=== PATIENT | male | born 1965 | race Caucasian/White ===

== ENCOUNTER → 2021-03-17 11:08 | Outpatient (CLI) | payer OTHER, SELFPAY ==
[2021-03-17 22:06] LABS: COVID19 - ORCAS (NP or Nasal) Negative (Negative)
== END ==
PROVIDERS: Visit Provider Physician Assistant
DX: Z20.822 Contact with and (suspected) exposure to COVID-19 (principal)
CPT/HCPCS: U0003

== ENCOUNTER → 2022-02-07 10:58 | Outpatient (CLI) | payer OTHER, SELFPAY ==
[2022-02-07 19:29] LABS: Add Manual Diff / Slide Review NO; BUN Creatinine Ratio 17.4 (6-22); Basophils Absolute Auto 0 /uL (0-100); Basophils Percent Auto 0.7 % (0-2); Blood Urea Nitrogen 19 mg/dL (9-20); Calcium 9.7 mg/dL (8.4-10.2); Carbon Dioxide 32 mmol/L (22-32); Chloride 99 mmol/L (98-107); Cholesterol 292 mg/dL (140-199); Eosinophils Absolute Auto 100 /uL (0-450); Eosinophils Percent Auto 1.7 % (2-4); Estimated Glomerular Filt Rate > 60 mL/min (>60); Glucose 113 mg/dL (70-100); HDL Cholesterol 101 mg/dL (40-60); HEMOLYSIS < 15 (0-50); Hematocrit 45.1 % (41-53); Hemoglobin 15.6 g/dL (13.5-17.5); LDL Cholesterol Calculated 174 mg/dL (<100); Lymphocytes Absolute Auto 1800 /uL (1100-4500); Lymphocytes Percent Auto 32.9 % (25-40); Mean Corpuscular HGB Conc 34.6 % (30-36); Mean Corpuscular Hemoglobin 29.6 PG (26-34); Mean Corpuscular Volume 85.4 fL (80-100); Monocytes Absolute Auto 600 /uL (0-900); Monocytes Percent Auto 11.7 % (3-14); Neutrophils Absolute Auto 2900 /uL (1500-7000); Platelet Count 263 X10^3/uL (150-400); Potassium 4.9 mmol/L (3.4-5.1); Red Blood Cell Count 5.28 X10^6/uL (4.5-5.9); Red Cell Distribution Width 13.4 % (11.6-14.8); Sodium 139 mmol/L (137-145); Triglycerides 83 mg/dL (35-150); White Blood Cell Count 5.4 X10^3/uL (4.5-11.0)
== END ==
PROVIDERS: PCP Family Medicine; Visit Provider Family Medicine
DX: E78.2 Mixed hyperlipidemia (principal); I10 Essential (primary) hypertension; M79.605 Pain in left leg; R04.0 Epistaxis; Z98.890 Other specified postprocedural states
CPT/HCPCS: 80048; 80061; 85025

== ENCOUNTER → 2022-04-05 12:27 | Outpatient (CLI) | payer OTHER, SELFPAY ==
[2022-04-05 21:04] LABS: COVID19 - ORCAS (NP or Nasal) Negative (Negative)
== END ==
PROVIDERS: PCP Family Medicine; Visit Provider Family Medicine
DX: Z20.822 Contact with and (suspected) exposure to COVID-19 (principal)
CPT/HCPCS: U0003

== ENCOUNTER 2023-05-29 18:52 | Inpatient (IN) | payer OTHER, SELFPAY ==
[2023-05-29] VITALS (12 sets, daily range): BP systolic 123–205; BP diastolic 71–101; PULSE 67–94; RESP 20; TEMP 37.2; O2SAT 92–99; BMI 25.1
--- NOTE | 2023-05-29 19:07 | DI.RAD.S_ITS ---
PROCEDURE: XR CHEST 1V INDICATIONS: fall off ladder TECHNIQUE: One view of the chest was acquired. COMPARISON: None. FINDINGS: Surgical changes and devices: None. Lungs and pleura: Lungs are clear. No pleural effusions or pneumothorax. Mediastinum: Mediastinal contours appear normal. Heart size is mildly enlarged. Bones and chest wall: No suspicious bony lesions. Overlying soft tissues appear unremarkable. IMPRESSION: No acute pulmonary process. Dictated by: Kimo De La O M.D. on 05/29/2023 at 19:43 Approved by: Kimo De La O M.D. on 05/29/2023 at 19:43
--- NOTE | 2023-05-29 19:07 | DI.RAD.S_ITS ---
PROCEDURE: XR HIP W PEL IF DONE LT 2V INDICATIONS: pain fall off ladder TECHNIQUE: AP pelvis with lateral view(s) of the left hip(s). COMPARISON: None. FINDINGS: Bones: Fracture of the left femoral neck with mild displacement, possibly transcervical versus intertrochanteric fracture. Degenerative changes of the visualized lower lumbar spine and pubic symphysis. Soft tissues: The visualized bowel gas pattern is normal. No suspicious soft tissue calcifications. IMPRESSION: Mildly displaced left femoral neck fracture. Dictated by: Kimo De La O M.D. on 05/29/2023 at 19:44 Approved by: Kimo De La O M.D. on 05/29/2023 at 19:45
--- NOTE | 2023-05-29 19:10 | ED.FALL ---
HPI - Fall General Chief Complaint: Fall Stated Complaint: fell off ladder/lt thigh hip injury Time Seen by Provider: 05/29/23 19:07 Source: patient and EMS Mode of arrival: EMS History of Present Illness HPI Narrative: Patient is a 58-year-old male who presents today after fall off ladder. [place] a piece of plywood up on a roof when he fell from about 5 ft. Landing mostly on his left hip. Did not hit his head no neck pain no loss of consciousness no numbness tingling or weakness. Unable to bear weight. Ultimately came over by private auto. He was unable to get out of the car required EMS for assistance. He denies any back pain abdominal pain no nausea or vomiting not on any antiplatelet or anticoagulation medication. Related Data Allergies Allergy/AdvReac Type Severity Reaction Status Date / Time No Known Drug Allergies Allergy Verified 05/29/23 19:07 Patient History Social History Smoking Status: Never smoker Smoking Status: Never smoker alcohol intake frequency: a few times a week Alcohol type: wine Substance Use Type: does not use Exam Initial Vital Signs Initial Vital Signs: Vital Signs Pulse Oximetry 97 05/29/23 18:55 GENERAL: Alert very pleasant 58-year-old male HEENT: Head normocephalic,, EOMI, pupils reactive, face symmetric, moist mucous membranes, NECK: Supple, full range of motion, no step-offs, nontender on vertebrae CARDIOVASCULAR: Regular rate and rhythm without murmurs, rubs or gallops. RESPIRATORY: Breath sounds equal bilaterally, no wheezes rales or rhonchi. No crepitations, no subcutaneous air, chest is nontender, no signs of trauma ABDOMEN: Soft, nontender. Normoactive bowel sounds all 4 quadrants. No guarding or rebound. BACK: Nontender vertebrae, no step-offs, no contusions PELVIS: stable. EXTREMITIES: Normal range of motion, no clubbing or edema. Right upper extremity: Within normal limits Left upper extremity: Within normal limits Right lower extremity: Within normal limits Left lower extremity: Pain at left hip distal pedal pulse intact no obvious femur deformity knee is stable NEUROLOGICAL: Cranial nerves II through XII grossly intact. Normal gait and speech. SKIN: Warm, dry, no petechiae, no rashes or lesions, no contusions or ecchymosis Course Orders Ordered: ED Orders 05/29/23 19:07 Chest [XR chest 2V] Stat XR hip w pel if done LT 2V Stat 05/29/23 19:08 CBC Auto Diff [Complete Blood Count AUTO DIFF] Stat CMP [Comprehensive Metabolic Panel] Stat 05/29/23 19:38 CT chest abd pel w con Stat Acetaminophen (Acetaminophen 325 Mg Tablet) 650 mg PO Q6H PRN PRN Reason: Fever/Mild Pain (1-3) Albuterol (Albuterol 2.5 Mg/3 Ml Neb (Adult)) 2.5 mg INH [id number] PRN PRN Reason: Dyspnea Hydromorphone HCl (Hydromorphone 0.5 Mg Inj) 0.5 mg IV Q2H PRN PRN Reason: Pain, Severe (7-10) Sodium Chloride (Normal Saline 0.9%) 1,000 mls @ 100 mls/hr IV CONT DUKE Last Admin: 05/29/23 21:39 Dose: 100 mls/hr Documented By: YAHIR Melatonin (Melatonin 3 Mg Tablet) 9 mg PO BEDTIME PRN PRN Reason: insomnia Naloxone HCl (Naloxone 0.4 Mg/Ml Vial) 0.2 mg IV Q2MIN PRN PRN Reason: Opiate Reversal Ondansetron HCl (Ondansetron 4 Mg/2 Ml Inj) 4 mg IV Q8HR PRN PRN Reason: Nausea And Vomiting Oxycodone HCl (Oxycodone Ir 5 Mg Tablet) 5 mg PO Q3H PRN PRN Reason: Pain, Moderate (4-6) Discontinued Medications Morphine Sulfate (Morphine 2 Mg/Ml Inj) 2 mg IV NOW ONE Stop: 05/29/23 19:08 Last Admin: 05/29/23 19:21 Dose: 2 mg Documented By: YAHIR Vital Signs Vital signs: Vital Signs - 8 hr 05/29/23 18:55 05/29/23 18:56 05/29/23 18:56 Temperature Pulse Rate 94 H Respiratory Rate Blood Pressure 205/101 H Pulse Oximetry 97 99 Oxygen Delivery Method 05/29/23 18:59 05/29/23 19:00 05/29/23 19:00 Temperature 98.9 F Pulse Rate 91 H 93 H Respiratory Rate 20 Blood Pressure 205/101 H 171/100 H Pulse Oximetry 98 99 Oxygen Delivery Method Room Air 05/29/23 19:59 05/29/23 20:00 05/29/23 20:18 Temperature Pulse Rate 81 80 Respiratory Rate Blood Pressure 151/89 H Pulse Oximetry 99 99 Oxygen Delivery Method 05/29/23 20:18 05/29/23 20:30 05/29/23 20:30 Temperature Pulse Rate 84 76 Respiratory Rate Blood Pressure 137/84 Pulse Oximetry 98 95 Oxygen Delivery Method 05/29/23 21:00 05/29/23 21:00 Temperature Pulse Rate 74 Respiratory Rate Blood Pressure 123/71 Pulse Oximetry 94 Oxygen Delivery Method MDM - Fall Lab Data 05/29/23 19:08 05/29/23 19:08 Labs: Lab Results 05/29/23 Range/Units 19:08 WBC 11.9 H (4.5-11.0) X10^3/uL RBC 5.26 (4.5-5.9) X10^6/uL Hgb 15.1 (13.5-17.5) g/dL Hct 45.1 (41-53) % MCV 85.7 (80-100) fL MCH 28.7 (26-34) PG MCHC 33.5 (30-36) % RDW 13.6 (11.6-14.8) % Plt Count 281 (150-400) X10^3/uL Neut % (Auto) 83.0 H (50-75) % Lymph % (Auto) 11.1 L (25-40) % [place] % (Auto) 5.6 (3-14) % Eos % (Auto) 0.1 L (2-4) % Baso % (Auto) 0.2 (0-2) % Neut # (Auto) 9900 H (5518-8145) /uL Lymph # (Auto) 1300 (1217-3872) /uL [place] # (Auto) 700 (0-900) /uL Eos # (Auto) 0 (0-450) /uL Baso # (Auto) 0 (0-100) /uL Sodium 135 L (137-145) mmol/L Potassium 4.0 (3.4-5.1) mmol/L Chloride 101 (98-107) mmol/L Carbon Dioxide 27 (22-32) mmol/L BUN 18 (9-20) mg/dL Creatinine 0.88 (0.66-1.25) mg/dL Estimated GFR > 60 (>60) mL/min BUN/Creatinine Ratio 20.5 (6-22) Glucose 116 H (80-110) mg/dL Calcium 9.4 (8.4-10.2) mg/dL Total Bilirubin 0.4 (0.2-1.3) mg/dL AST 29 (17-59) IU/L ALT 31 (<50) IU/L Alkaline Phosphatase 80 (38-126) U/L Total Protein 7.6 (6.3-8.2) g/dL Albumin 4.3 (3.5-5.0) g/dL Globulin 3.3 (1.7-4.1) g/dL Albumin/Globulin Ratio 1.3 (1.0-2.8) Imaging Data CT scan - chest: Radiologist's Impression: PROCEDURE: CT CHEST ABD PEL W CON INDICATIONS: fall off ladder TECHNIQUE: After the administration of intravenous contrast, axial sections acquired from the supraclavicular neck to the pubic symphysis. Coronal and sagittal reformats were performed. For radiation dose reduction, the following was used: automated exposure control, adjustment of mA and/or kV according to patient size. COMPARISON: [facility], CR, XR HIP W PEL IF DONE LT 2V, 05/29/2023, 19:14. [facility], CR, XR CHEST 1V, 05/29/2023, 19:14. FINDINGS: Image quality: Excellent. CHEST: Lower Neck: No enlarged lymph nodes. Thyroid: Within normal limits. Axillae: No enlarged lymph nodes. Chest Wall: Unremarkable. Lungs and Airways: No consolidation. Right middle lobe and lingula scars and atelectasis. Multiple lung nodules are present. Reference nodules are listed in following: -5 mm; right lower lobe; series 5, image 203. -4 mm; right lower lobe; series 5, image 195. -3 mm right upper lobe; series 5, image 144. -3 mm; left lower lobe; series 5, image 252. -2 mm; left lower lobe; series 5, image 230. Pleura: No pneumothorax or pleural effusions. Heart: Heart size is normal. No pericardial effusion. Thoracic Vessels: The aorta and pulmonary arteries demonstrate normal size. Mediastinum and Polly: No enlarged lymph nodes. Esophagus: No wall thickening. Tiny hiatal hernia. ABDOMEN: Liver: Normal size. Mild hepatic steatosis. Gallbladder: Unremarkable. Biliary ducts: Unremarkable. Pancreas: Unremarkable. Spleen: Unremarkable. Adrenal Glands: Unremarkable. Kidneys and Ureters: Unremarkable. Stomach and Bowel: Stomach, small bowel loops, and colon are unremarkable. Normal appendix. Peritoneum: No abnormal intraperitoneal fluid. No free air. Ventral Wall: No hernia. Abdominal Nodes: No retroperitoneal or mesenteric adenopathy by size criteria. Vessels: Aorta and inferior vena cava are normal in size. PELVIS: Pelvic Organs: Unremarkable. Bladder: Unremarkable. Pelvic Nodes: No enlarged lymph nodes. Miscellaneous: No inguinal hernias are seen. Bones: There is a comminuted left femoral neck fracture with mild displacement and impaction. Degenerative changes are noted in thoracic and lumbar spine. Sclerotic appearance of the superior and inferior left pubic rami. IMPRESSION: 1. No acute visceral injuries in thorax, abdomen or pelvis. 2. Comminuted left femoral neck fracture. 3. Multiple small lung nodules are present bilaterally. Please see enclosed follow-up recommendation. Fleischner Society criteria for SOLID lung nodule followup. Nodule size (mm)Low-risk patientHigh-risk patient?4No follow-up neededFollow-up at 12 mo; if no change, no further follow-up>8-7Amzpyu-ox CT at 12 mo; if no change, no further follow-up needed.Initial follow-up CT at 6-12 mo, then 18-24 mo if no change. >6-8Initial follow-up CT at 6-12 mo, then 18-24 mo if no change. Initial follow-up CT at 3-6 mo, then 9-12 mo and 24 mo if no change. >8Follow-up CT at 3, 9, 24 mo. Or PET and/or biopsy.Same as for low-risk pts. Dictated by: Randal Santana M.D. on 05/29/2023 at 20:08 Approved by: Randal Santana M.D. on 05/29/2023 at 20:21 MDM Narrative Medical decision making narrative: Patient healthy 4-year-old male who fell off a ladder about 5-6 feet. Landing mostly on his left hip. He is found to have a left femoral neck fracture. No head injury no neck pain or upper extremity pain. X-rays initially done confirmed hip fracture however CT was done in case if there was further acetabular fracture which fortunately there is not. No other rib fractures. Patient's pain is controlled 2 mg of morphine. He is alert and oriented. No deficits. Dr. Duran ortho updated on patient's symptoms test results and will operate tomorrow , hospitalist updated patient's symptoms test results Discharge Plan Departure Patient Disposition: Admitted As Inpatient Clinical Impression: Closed fracture of neck of left femur Admit Date/Time: 05/29/23 21:04 Admit Provider: Waldemar Hernandez
[2023-05-29] MEDS: MORPHINE 2 MG/ML INJ IV (19:21)
--- NOTE | 2023-05-29 19:38 | DI.CT.S_ITS ---
PROCEDURE: CT CHEST ABD PEL W CON INDICATIONS: fall off ladder TECHNIQUE: After the administration of intravenous contrast, axial sections acquired from the supraclavicular neck to the pubic symphysis. Coronal and sagittal reformats were performed. For radiation dose reduction, the following was used: automated exposure control, adjustment of mA and/or kV according to patient size. COMPARISON: [facility], CR, XR HIP W PEL IF DONE LT 2V, 05/29/2023, 19:14. [facility], CR, XR CHEST 1V, 05/29/2023, 19:14. FINDINGS: Image quality: Excellent. CHEST: Lower Neck: No enlarged lymph nodes. Thyroid: Within normal limits. Axillae: No enlarged lymph nodes. Chest Wall: Unremarkable. Lungs and Airways: No consolidation. Right middle lobe and lingula scars and atelectasis. Multiple lung nodules are present. Reference nodules are listed in following: -5 mm; right lower lobe; series 5, image 203. -4 mm; right lower lobe; series 5, image 195. -3 mm right upper lobe; series 5, image 144. -3 mm; left lower lobe; series 5, image 252. -2 mm; left lower lobe; series 5, image 230. Pleura: No pneumothorax or pleural effusions. Heart: Heart size is normal. No pericardial effusion. Thoracic Vessels: The aorta and pulmonary arteries demonstrate normal size. Mediastinum and Polly: No enlarged lymph nodes. Esophagus: No wall thickening. Tiny hiatal hernia. ABDOMEN: Liver: Normal size. Mild hepatic steatosis. Gallbladder: Unremarkable. Biliary ducts: Unremarkable. Pancreas: Unremarkable. Spleen: Unremarkable. Adrenal Glands: Unremarkable. Kidneys and Ureters: Unremarkable. Stomach and Bowel: Stomach, small bowel loops, and colon are unremarkable. Normal appendix. Peritoneum: No abnormal intraperitoneal fluid. No free air. Ventral Wall: No hernia. Abdominal Nodes: No retroperitoneal or mesenteric adenopathy by size criteria. Vessels: Aorta and inferior vena cava are normal in size. PELVIS: Pelvic Organs: Unremarkable. Bladder: Unremarkable. Pelvic Nodes: No enlarged lymph nodes. Miscellaneous: No inguinal hernias are seen. Bones: There is a comminuted left femoral neck fracture with mild displacement and impaction. Degenerative changes are noted in thoracic and lumbar spine. Sclerotic appearance of the superior and inferior left pubic rami. IMPRESSION: 1. No acute visceral injuries in thorax, abdomen or pelvis. 2. Comminuted left femoral neck fracture. 3. Multiple small lung nodules are present bilaterally. Please see enclosed follow-up recommendation. Fleischner Society criteria for SOLID lung nodule followup. Nodule size (mm)Low-risk patientHigh-risk patient?4No follow-up neededFollow-up at 12 mo; if no change, no further follow-up>[id number]-[id number] CT at 12 mo; if no change, no further follow-up needed.Initial follow-up CT at 6-12 mo, then 18-24 mo if no change. >6-8Initial follow-up CT at 6-12 mo, then 18-24 mo if no change. Initial follow-up CT at 3-6 mo, then 9-12 mo and 24 mo if no change. >8Follow-up CT at 3, 9, 24 mo. Or PET and/or biopsy.Same as for low-risk pts. Dictated by: Randal Santana M.D. on 05/29/2023 at 20:08 Approved by: Randal Santana M.D. on 05/29/2023 at 20:21
[2023-05-29 19:53] LABS: Add Manual Diff / Slide Review NO; Basophils Absolute Auto 0 /uL (0-100); Basophils Percent Auto 0.2 % (0-2); Eosinophils Absolute Auto 0 /uL (0-450); Eosinophils Percent Auto 0.1 % (2-4); Hematocrit 45.1 % (41-53); Hemoglobin 15.1 g/dL (13.5-17.5); Lymphocytes Absolute Auto 1300 /uL (1100-4500); Lymphocytes Percent Auto 11.1 % (25-40); Mean Corpuscular HGB Conc 33.5 % (30-36); Mean Corpuscular Hemoglobin 28.7 PG (26-34); Mean Corpuscular Volume 85.7 fL (80-100); Monocytes Absolute Auto 700 /uL (0-900); Monocytes Percent Auto 5.6 % (3-14); Neutrophils Absolute Auto 9900 /uL (1500-7000); Platelet Count 281 X10^3/uL (150-400); Red Blood Cell Count 5.26 X10^6/uL (4.5-5.9); Red Cell Distribution Width 13.6 % (11.6-14.8); White Blood Cell Count 11.9 X10^3/uL (4.5-11.0)
[2023-05-29 19:56] LABS: Alanine Aminotransferase 31 IU/L (<50); Albumin 4.3 g/dL (3.5-5.0); Albumin Globulin Ratio 1.3 (1.0-2.8); Alkaline Phosphatase 80 U/L (38-126); Aspartate Aminotransferase 29 IU/L (17-59); BUN Creatinine Ratio 20.5 (6-22); Bilirubin Total 0.4 mg/dL (0.2-1.3); Blood Urea Nitrogen 18 mg/dL (9-20); Calcium 9.4 mg/dL (8.4-10.2); Carbon Dioxide 27 mmol/L (22-32); Chloride 101 mmol/L (98-107); Estimated Glomerular Filt Rate > 60 mL/min (>60); Globulin 3.3 g/dL (1.7-4.1); Glucose 116 mg/dL (80-110); HEMOLYSIS 21 (0-50); Sodium 135 mmol/L (137-145); Total Protein 7.6 g/dL (6.3-8.2)
[2023-05-29] MEDS: SODIUM CHLORIDE 0.9% 1,000 ML 100 ML IV (21:39)
[2023-05-29] MEDS: HYDROMORPHONE 0.5 MG INJ IV (23:08)
[2023-05-30] VITALS (15 sets, daily range): BP systolic 98–150; BP diastolic 32–92; PULSE 70–92; RESP 11–20; TEMP 35.8–37; O2SAT 93–99; BMI 25.1
--- NOTE | 2023-05-30 | DI.RAD.S_ITS ---
PROCEDURE: XR PELVIS 1-2V INDICATIONS: INTRA OP TECHNIQUE: 1 view of the lower pelvis acquired. COMPARISON: None. FINDINGS: Bones: Patient is status post left hip arthroplasty, with hardware components in expected positions. The hip joint appears congruent. The visualized bony structures appear intact. Soft tissues: Overlying postoperative changes are noted. No suspicious soft tissue densities. IMPRESSION: Intraoperative image of pelvis shows left total hip arthroplasty in progress. Dictated by: Brandon Gilbert M.D. on 05/30/2023 at 18:55 Approved by: Brandon Gilbert M.D. on 05/30/2023 at 18:56
--- NOTE | 2023-05-30 00:05 | P.HP_ITS ---
History of Present Illness History of Present Illness Chief complaint: fell off ladder/lt thigh hip injury Narrative: 58 years old male without any past medical history presents to the ER after a fall off a ladder from about 5 feet's. Landed on his buttocks and left hip. Immediately after that he started having left hip pain and later on shoulder pain. Denies any loss of consciousness or head injury. Denies any other symptoms. In the ER CT scan shows comminuted left femoral neck fracture. Orthopedic surgery was contacted and will see the patient in the morning. Laboratory unremarkable except sodium 135 and blood sugar 116. He was given morphine 2 mg IV in the ED. [facility] Social History Smoking Status: Never smoker Meds Home Medications and Allergies Allergies Allergy/AdvReac Type Severity Reaction Status Date / Time No Known Drug Allergies Allergy Verified 05/29/23 19:07 Review of Systems Review of Systems ROS: Yes All systems reviewed with the patient and are negative except as otherwise documented Constitutional Constitutional: Reports as per HPI and Reports system reviewed and no additional complaints, except as documented Eyes Eyes: Reports as per HPI and Reports system reviewed and no additional complaints, except as documented ENT Ears, Nose, Mouth, and Throat: Yes as per HPI and Yes system reviewed and no additional complaints, except as documented Cardiovascular Cardiovascular: Reports system reviewed and no additional complaints, except as documented Respiratory Respiratory: Reports system reviewed and no additional complaints, except as documented Gastrointestinal Gastrointestinal: Reports system reviewed and no additional complaints, except as documented Genitourinary Genitourinary: Reports system reviewed and no additional complaints, except as documented Musculoskeletal Musculoskeletal: Reports system reviewed and no additional complaints, except as documented, Reports abnormal gait and Reports numbness Neurologic Neurologic: Reports system reviewed and no additional complaints, except as documented, Reports abnormal gait, Reports confusion and Reports numbness Psychiatric Psychiatric: Reports system reviewed and no additional complaints, except as documented and Reports confusion Exam Vital Signs (past 8 hours): - 05/29/23 18:55 05/29/23 18:56 05/29/23 18:56 Temperature Pulse Rate 94 H Respiratory Rate Blood Pressure 205/101 H Pulse Oximetry 97 99 Oxygen Delivery Method 05/29/23 18:59 05/29/23 19:00 05/29/23 19:00 Temperature 98.9 F Pulse Rate 91 H 93 H Respiratory Rate 20 Blood Pressure 205/101 H 171/100 H Pulse Oximetry 98 99 Oxygen Delivery Method Room Air 05/29/23 19:59 05/29/23 20:00 05/29/23 20:18 Temperature Pulse Rate 81 80 Respiratory Rate Blood Pressure 151/89 H Pulse Oximetry 99 99 Oxygen Delivery Method 05/29/23 20:18 05/29/23 20:30 05/29/23 20:30 Temperature Pulse Rate 84 76 Respiratory Rate Blood Pressure 137/84 Pulse Oximetry 98 95 Oxygen Delivery Method 05/29/23 21:00 05/29/23 21:00 05/29/23 21:30 Temperature Pulse Rate 74 Respiratory Rate Blood Pressure 123/71 131/80 Pulse Oximetry 94 Oxygen Delivery Method 05/29/23 21:30 05/29/23 22:00 05/29/23 22:00 Temperature Pulse Rate 74 67 Respiratory Rate Blood Pressure 134/79 Pulse Oximetry 94 95 Oxygen Delivery Method Room Air 05/29/23 22:30 05/29/23 22:30 05/29/23 23:17 Temperature Pulse Rate 74 Respiratory Rate Blood Pressure 137/75 Pulse Oximetry 92 Oxygen Delivery Method Room Air Room Air Oxygen Delivery Method Room Air Const General: cooperative, comfortable and well developed Orientation: alert and oriented x3 HENAK Head: normal to inspection, normocephalic and atraumatic Face and sinus: normal facial exam Mouth: oral mucosae normal and moist mucous membranes Throat: posterior oropharynx normal Eyes General: appearance normal, both eyes and all related structures Pupils: PERRL EOM: EOM intact bilaterally Neck Neck: normal visual inspection and full ROM Chest Chest: normal inspection of the chest Resp Effort & Inspection: normal respiratory effort and able to speak in complete sentences Auscultation: clear to auscultation bilaterally Cardio Palpation: normal PMI Rate: regular rate Rhythm: regular rhythm Heart Sounds: S1 normal and S2 normal GI Inspection: normal to inspection Palpation: soft and no hepatosplenomegaly Auscultation: normal bowel sounds Skin General: no rashes or lesions noted Lesions: no lesions Rashes: no rashes Trauma: no lacerations or abrasions Neuro General: patient alert, patient awake, patient oriented x3 and no focal motor deficits Cranial Nerves: CN's II-XI intact bilaterally Cognition: normal cognition Speech: speech normal Gait: normal gait Motor: muscle tone normal throughout Sensory Exam: no sensory deficits noted Extrem Other: Left hip tenderness and limited range of motion. Psych Appearance: grossly normal Mental Status: mental status grossly normal Speech and Movement: speech and movement normal Objective Labs 05/29/23 19:08 05/29/23 19:08 Labs: Laboratory Results - last 24 hr 05/29/23 19:08 WBC 11.9 H RBC 5.26 Hgb 15.1 Hct 45.1 MCV 85.7 MCH 28.7 MCHC 33.5 RDW 13.6 Plt Count 281 Neut % (Auto) 83.0 H Lymph % (Auto) 11.1 L [place] % (Auto) 5.6 Eos % (Auto) 0.1 L Baso % (Auto) 0.2 Neut # (Auto) 9900 H Lymph # (Auto) 1300 [place] # (Auto) 700 Eos # (Auto) 0 Baso # (Auto) 0 Sodium 135 L Potassium 4.0 Chloride 101 Carbon Dioxide 27 BUN 18 Creatinine 0.88 Estimated GFR > 60 BUN/Creatinine Ratio 20.5 Glucose 116 H Calcium 9.4 Total Bilirubin 0.4 AST 29 ALT 31 Alkaline Phosphatase 80 Total Protein 7.6 Albumin 4.3 Globulin 3.3 Albumin/Globulin Ratio 1.3 Assessment & Plan Assessment and plan (1) Closed fracture of neck of left femur: Status: Acute Plan: N.p.o. after midnight Bedrest Pain medications as needed Orthopedic surgery consult (2) Hyperlipidemia, mixed: Status: Acute Plan: Currently not on any medications and denies any hypertension. Monitor closely, pain control. (3) Primary hypertension: Status: Acute Plan: Denies any hyperlipidemia. Defer the further work-up to his PCP. Time Spent With Patient Time with patient: 50 to 69 minutes with 50% spent counseling/coordinating care Quality VTE Deep Vein Thrombosis/Pulmonary Embolism Present on Admission: No MIPS - Admit I confirm the patient?s Advance Care Plan is present, Code status is documented, Surrogate decision maker is in patient?s record [If Yes, STOP here]: Yes MIPS - Meds 'Current medications' to include all prescriptions, [id number] products, herbals, cannabis/cannabidiol products, and vitamin/mineral/dietary (nutritional) supplements. I have utilized all available resources to obtain, update, or review the patient?s current medications. [If Yes, STOP here]: Yes
[2023-05-30] MEDS: SODIUM CHLORIDE 0.9% 1,000 ML 100 ML IV (08:03)
[2023-05-30 08:30] LABS: Add Manual Diff / Slide Review NO; Basophils Absolute Auto 0 /uL (0-100); Basophils Percent Auto 0.5 % (0-2); Eosinophils Absolute Auto 100 /uL (0-450); Eosinophils Percent Auto 0.8 % (2-4); Hematocrit 41.4 % (41-53); Hemoglobin 14.3 g/dL (13.5-17.5); Lymphocytes Absolute Auto 1500 /uL (1100-4500); Lymphocytes Percent Auto 19.4 % (25-40); Mean Corpuscular HGB Conc 34.5 % (30-36); Mean Corpuscular Hemoglobin 29.3 PG (26-34); Mean Corpuscular Volume 85.1 fL (80-100); Monocytes Absolute Auto 700 /uL (0-900); Monocytes Percent Auto 8.7 % (3-14); Neutrophils Absolute Auto 5400 /uL (1500-7000); Neutrophils Percent Auto 70.6 % (50-75); Platelet Count 239 X10^3/uL (150-400); Red Blood Cell Count 4.87 X10^6/uL (4.5-5.9); Red Cell Distribution Width 13.2 % (11.6-14.8); White Blood Cell Count 7.6 X10^3/uL (4.5-11.0)
[2023-05-30 08:43] LABS: BUN Creatinine Ratio 18.5 (6-22); Blood Urea Nitrogen 15 mg/dL (9-20); Calcium 8.8 mg/dL (8.4-10.2); Carbon Dioxide 26 mmol/L (22-32); Chloride 102 mmol/L (98-107); Estimated Glomerular Filt Rate > 60 mL/min (>60); Glucose 112 mg/dL (80-110); HEMOLYSIS < 15 (0-50); Potassium 3.8 mmol/L (3.4-5.1); Sodium 136 mmol/L (137-145)
--- NOTE | 2023-05-30 11:13 | OT.IPNOTE ---
Pt has closed fracture of left neck of femur and to have surgery. Discharge OT eval orders.
[2023-05-30] MEDS: HYDROMORPHONE 0.5 MG INJ IV (12:17)
--- NOTE | 2023-05-30 13:29 | PM.HP.1 ---
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 He was on a roof when he fell ladder slipped and he landed on his left hip. He notes left hip pain and some minimal left shoulder pain. He was not lightheaded and did not have chest pain or other problems prior to his fall. He is otherwise healthy. Takes no medications and is not allergic to anything. Notes significant left hip pain. [facility] Social History Smoking Status: Never smoker Meds Home Medications and Allergies Home Medications Medication Instructions Recorded Confirmed Type No Known Home Medications 05/30/23 05/30/23 History Allergies Allergy/AdvReac Type Severity Reaction Status Date / Time No Known Drug Allergies Allergy Verified 05/29/23 19:07 Review of Systems Review of Systems Narrative: Completely negative fall was an accident. His home at home at the time. Exam Vital Signs (past 8 hours): Oxygen Delivery Method Room Air Narrative Exam Narrative: HEENT is benign lungs are clear cor regular rate and rhythm abdomen soft and benign examination of the left lower extremity shows obvious swelling of the left hip slight external rotation, pain with internal rotation, he is able to fire his toe flexors and extensors in his calf is soft his left shoulder shows no crepitation with range of motion he can forward flex it about 100 and 70? he does have some slight pain with active forward flexion and external rotation against resistance but does not have a significant drop arm or crepitation his elbow and wrist and hand are benign. Neurologically intact in the left lower extremity. Objective Labs 05/30/23 08:18 05/30/23 08:18 Labs: Laboratory Results - last 24 hr 05/29/23 05/30/23 19:08 08:18 WBC 11.9 H 7.6 RBC 5.26 4.87 Hgb 15.1 14.3 Hct 45.1 41.4 MCV 85.7 85.1 MCH 28.7 29.3 MCHC 33.5 34.5 RDW 13.6 13.2 Plt Count 281 239 Neut % (Auto) 83.0 H 70.6 Lymph % (Auto) 11.1 L 19.4 L [place] % (Auto) 5.6 8.7 Eos % (Auto) 0.1 L 0.8 L Baso % (Auto) 0.2 0.5 Neut # (Auto) 9900 H 5400 Lymph # (Auto) 1300 1500 [place] # (Auto) 700 700 Eos # (Auto) 0 100 Baso # (Auto) 0 0 Sodium 135 L 136 L Potassium 4.0 3.8 Chloride 101 102 Carbon Dioxide 27 26 BUN 18 15 Creatinine 0.88 0.81 Estimated GFR > 60 > 60 BUN/Creatinine Ratio 20.5 18.5 Glucose 116 H 112 H Calcium 9.4 8.8 Total Bilirubin 0.4 AST 29 ALT 31 Alkaline Phosphatase 80 Total Protein 7.6 Albumin 4.3 Globulin 3.3 Albumin/Globulin Ratio 1.3 x-rays show a comminuted left femoral neck fracture it is a vertical pattern. And there is comminution it is displaced. CT scan reconfirms a femoral neck fracture. Assessment & Plan Assessment and plan (1) Closed fracture of neck of left femur: Status: Acute Plan I have recommended a left total hip arthroplasty. 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 His femoral neck fracture pattern is not amenable to open reduction internal fixation as it is a comminuted vertical pattern. Recommended a total hip replacement versus a unipolar as he is very active and think that a metal on polyethylene prosthetic solution is preferable to metal on articular cartilage with a unipolar. The procedure options risks benefits and complications were discussed in detail. He would like to proceed with surgery. We discussed concerns regarding intraoperative fracture, component loosening, problems with instability postoperatively and options risks and benefits were discussed in detail. Quality VTE Deep Vein Thrombosis/Pulmonary Embolism Present on Admission: No
--- NOTE | 2023-05-30 13:58 | DI.RAD.S_ITS ---
PROCEDURE: XR HIP W PEL IF DONE LT 2V INDICATIONS: left hip post op TECHNIQUE: AP pelvis and lateral view of the left hip acquired. [facility] HIP W PEL IF DONE LT 2V, 05/29/2023, 19:14. FINDINGS: Bones: Patient is status post left hip arthroplasty, with hardware components in expected positions. The hip joint appears congruent. The visualized bony structures appear intact. Soft tissues: Overlying postoperative changes are noted. No suspicious soft tissue densities. IMPRESSION: Expected postoperative appearance of left hip arthroplasty Dictated by: Kimo De La O M.D. on 05/31/2023 at 9:27 Approved by: Kimo De La O M.D. on 05/31/2023 at 9:28
--- NOTE | 2023-05-30 14:28 | CM.DANOTE ---
Reviewed EMR and team rounds for pt's medical status and initial anticipated d/c needs. Pt was sleeping during time of this visit. Payor: Roman PCP: Thaddeus Falcon Surgeon: Roger Pt is a 58 year-old M who presented to the ED on 05/29/23 after falling off of a ladder. He reportedly fell on his left hip, resulting in a fracture. Ortho consulted, felt that pt will need a total L-hip replacement rather than fixation surgery. Surgery is planned for 4:00pm later today. DCP will continue to follow for post-op PT/OT eval and recommendations. Discharge Planning/Care Management CM Discharge Assessment Start: 05/30/23 14:25 Freq: Status: Active Protocol: Document 05/30/23 14:26 DPL (Rec: 05/30/23 14:28 DPL [id number]) Discharge Planning Assessment Assigned Life Agent APRYL [place] Advance Directives? No History Provided By Medical Record Has Patient been admitted in last 30 No days? Prior Living Arrangements House Household Members spouse Type of transporation used prior to Drives own vehicle admit Independent with ADL's Yes Is patient alert and oriented? Yes Comment N/A Caregiver for Another No Comment None at this time, will continue to monitor based on PT/OT recommendations for home d/c. Patient/Family Preference OP PT Therapy,OP OT Therapy Comment F/u 2-weeks post-op with Ortho for OP therapy recommendations. Barriers to Discharge No Discharge Plan Home Community Services Physical Therapy,Occupational Therapy Transportation Arrangement Spouse Referrals Initiated None needed Review Status In Process Please Provide Date Initial DC 05/30/23 Assessment Was Performed
--- NOTE | 2023-05-30 14:57 | PT-IP ANOTE ---
Pt will be undergoing hip sx. PT will discharge current orders. PT to follow up after surgery with new orders.
--- NOTE | 2023-05-30 15:15 | PC.NURSE ---
Addendum entered by Rose Mary Alex R.N. 05/30/23 15:26: He is transported via bed by Preop RN at 1500 to surgical area. Original Note: Patient is A&OX4, VSS on RA. He lies on his back, encouraged to make small position changes as able. He reports pain is minimal without moving, but states with touch or movement of LLE pain escalates to 9/10-10/10. +CMS to toes. He remains NPO. Voiding Light clear, yellow urine.IVF running at 100 ml/hr to PIV in R AC, SCD's in place.
[2023-05-30] MEDS: VANCOMYCIN 1,000 MG/200 ML PIGGYBACK 200 MG IV (15:26)
[2023-05-30] MEDS: CELECOXIB 200 MG CAPSULE PO (15:27)
[2023-05-30] MEDS: LACTATED RINGERS 1,000 ML 42 ML IV ×2 (15:27→17:45)
--- NOTE | 2023-05-30 16:05 | P.OP_ITS ---
Operative Date/Time/Diagnoses Date of procedure: 05/30/23 Time of procedure: 16:05 Pre-op diagnosis: Left femoral neck fracture comminuted and vertical pattern displaced Post-op diagnosis: same Procedure & Clinicians Procedure: Left total hip arthroplasty posterior approach Same procedure as scheduled: Yes Indications: The patient fell from a ladder and noted the acute onset of left hip pain. X- rays showed a displaced left femoral neck fracture with comminution and he is brought to the operating room for left total hip arthroplasty due to his unstable fracture pattern, comminution and what is felt to be a high risk for operative open reduction internal fixation treatment. Non-operative management has failed and the patient has requested total hip replacement. The risks, benefits and alternatives to surgery were discussed with the patient prior to proceeding. Risks discussed included, but were not limited to, failure to relieve pain, leg length discrepancy, dislocation, stiffness, infection, nerve damage, deep venous thrombosis, pulmonary embolism, stroke, coma, heart attack, permanent paralysis and , as well as the potential need for eventual revision of the prosthetic. Surgeon: Patito Duran Vat Cleaner: Du Pruitt Anesthesia Type: General Operative Notes Findings: Displaced left femoral neck fracture, adequate stability, adequate bone, Closure Type: primary Specimen(s): none sent Prosthetic devices, grafts, tissues, transplants, or devices: Duran [employer]hew 56 mm R3 neutral poly liner, one 6.5 mm screw, size 12 synergy uncemented, 36+ 0 Oxinium head Estimated Blood Loss (mL): 250 Blood products transfused: none Procedure in detail: The patient was seen in the pre-operative area, where the patient identified the left hip as the operative site and this was marked with my initials. The patient received pre-operative antibiotics and was taken to the operating room and placed on the operative table in the right lateral decubitus position after satisfactory anesthesia. A multimedia editor outwas performed. The left leg was prepared from the ankle to the iliac crest with ChloroPrep in the usual fashion and draped through sterile drapes. A PA was used during the procedure and was essential for intraoperative positioning and safe implantation of the components. The hip was approached through an approximately 20 cm incision centered over the greater trochanter and curving gently posteriorly as it went proximally. This was carried sharply to the fascia lina, which was divided and retracted with a self retaining retractor. The trochanteric bursa was excised with care being taken to avoid the sciatic nerve, which was identified and protected throughout the case. The short external rotators were incised and the capsulomuscular flap was raised and tagged for later repair. An osteotomy was made along the residual femoral neck above the residual trochanter. The femoral head was removed. There were multiple fragments of bone of the inferior neck. There was a crack that went into the most inferior aspect of the neck which was into the calcar but did not extend down into the lesser trochanter. The residual neck was felt to be stable. The femoral head was carefully removed. The acetabulum was meticulously irrigated with normal saline. The labrum was carefully resected. Hemostasis was achieved with the Aquamantys. Retractors were placed around the femur. The canal was opened with a box cutting osteotome, followed by a T handled reamer and a lateralizing reamer. The canal was carefully reamed. This was followed by sequential broaching until t here was good stability of the broach in the femur. Retractors were placed to expose the acetabulum. The labrum and central soft tissues were removed. Reaming was performed initially going up in 2 mm increments, then 1 mm increments until good bite was obtained with an odd sized reamer. The cup 1 mm larger than the last reamer was then inserted using the appropriate anteversion guides. It was further stabilized with a single screw. A trial neutral liner was placed. The broach was placed in the canal. A trial head and neck were then placed and the hip relocated and checked for leg length and stability. An intraoperative film confirmed the component position and no evidence of fracture. The patient was stable in the position of sleep, of squatting, and could be put through a range of motion with 45 degrees internal rotation without dislocation. At 90 degrees flexion, internal rotation to 70-80 degrees was possible before dislocation. This was felt to be satisfactory and the appropriate components were opened, and the trials were removed. The acetabular liner was impacted into position. The final stem was then impacted into the prepared femoral canal. A brief Betadine soak was performed while trialing with head options. The hip was meticulously irrigated with normal saline. Finally the femoral head was impacted onto the stem. The acetabulum was cleared of all material and the hip relocated one final time. The capsulomuscular flap was then repaired to the greater trochanter though an awl hole using the tag sutures. The short external rotators were repaired with a nonabsorbable suture. The fascia lina was closed with Vicryl. The subcutaneous layer was closed with barbed sutures and SteriStrips. An Aquacel Ag dressing was applied and the patient was taken to recovery having tolerated the procedure well. Complications: none Post-operative Condition: stable Disposition: Acute Care Plan for aftercare: The patient will be maintained on a standard total hip replacement protocol with weight bearing as tolerated and posterior hip precautions. The patient will receive Aspirin and sequential compression devices for DVT prophylaxis. The patient will be discharged home when safe for the home environment.
--- NOTE | 2023-05-30 16:27 | P.PN_ITS ---
Subjective Subjective Date Patient Seen: 05/30/23 Time Patient Seen: 08:00 Interval history: His pain is well controlled with pain medications. Exam Vital Signs (past 8 hours): - 05/30/23 15:31 Temperature 98.6 F Pulse Rate 79 Respiratory Rate 16 Blood Pressure 150/86 H Pulse Oximetry 99 Oxygen Delivery Method Room Air Oxygen Delivery Method Room Air Narrative Exam Narrative: GEN: no acute distress CV: regular rate and rhythm PULM: clear bilaterally ABD: soft, nontender, nondistended EXT: left hip tender to palpation Objective Labs 05/30/23 08:18 05/30/23 08:18 Labs: Laboratory Results - last 24 hr 05/29/23 05/30/23 19:08 08:18 WBC 11.9 H 7.6 RBC 5.26 4.87 Hgb 15.1 14.3 Hct 45.1 41.4 MCV 85.7 85.1 MCH 28.7 29.3 MCHC 33.5 34.5 RDW 13.6 13.2 Plt Count 281 239 Neut % (Auto) 83.0 H 70.6 Lymph % (Auto) 11.1 L 19.4 L [place] % (Auto) 5.6 8.7 Eos % (Auto) 0.1 L 0.8 L Baso % (Auto) 0.2 0.5 Neut # (Auto) 9900 H 5400 Lymph # (Auto) 1300 1500 [place] # (Auto) 700 700 Eos # (Auto) 0 100 Baso # (Auto) 0 0 Sodium 135 L 136 L Potassium 4.0 3.8 Chloride 101 102 Carbon Dioxide 27 26 BUN 18 15 Creatinine 0.88 0.81 Estimated GFR > 60 > 60 BUN/Creatinine Ratio 20.5 18.5 Glucose 116 H 112 H Calcium 9.4 8.8 Total Bilirubin 0.4 AST 29 ALT 31 Alkaline Phosphatase 80 Total Protein 7.6 Albumin 4.3 Globulin 3.3 Albumin/Globulin Ratio 1.3 PFSH Social History household members: spouse Smoking Status: Never smoker Assessment & Plan Assessment & Plan narrative: 1. Acute left hip fracture -secondary to mechanical fall -IV pain medications ordered -plan for OR today -ortho consulted -NPO -PT/OT eval once surgery performed 2. Hypertension/Hyperlipidemia -on no meds per patient Quality VTE Deep Vein Thrombosis/Pulmonary Embolism Present on Admission: No
[2023-05-30] MEDS: CEFAZOLIN 2 GM/100 ML PREMIX 100 ML IV ×2 (16:45→22:57)
[2023-05-30] MEDS: TRANEXAMIC ACID 1,000 MG VIAL 1000 MG INJ ×2 (16:50→18:15)
--- NOTE | 2023-05-30 17:17 | SUR.OPER ---
Lateral on padded OR bed. Gel axillary roll. Arms secured on padded armboard with pillow supporting top arm. Padded hip positioner braces x4 - anterior and posterior chest and pelvis. Additional gel pad used anterior pelvis. Gel pad under bottom leg from knee to foot and secured with tape over sheet.
[2023-05-30] MEDS: BUPIVACAINE LIPOSOME 266 MG/20 ML VIAL INJ (17:27)
[2023-05-30] MEDS: BUPIVACAINE 0.25% (PF) 60 ML, EPINEPHrine 0.3 MG INJ (17:28)
[2023-05-30] MEDS: ACETAMINOPHEN IV 1,000 MG/100 ML VIAL 400 MG IV (19:13)
[2023-05-30] MEDS: LACTATED RINGERS 1,000 ML 100 ML IV (20:04)
--- NOTE | 2023-05-30 20:08 | SUR.PHASEI ---
Pt transferred to room 215 in bed. Alert, oriented. Updated SBAR to Ofelia Rn at bedside. at bedside.
[2023-05-30] MEDS: ASPIRIN EC 81 MG TABLET PO (21:02)
[2023-05-30] MEDS: DOCUSATE 100 MG CAPSULE PO (21:02)
--- NOTE | 2023-05-30 21:21 | PC.NURSE ---
194 Pt. arrived from PACU, alert & oriented. Pain level 08/09, dressing to lt. hip CDI. Encouraged to call for any assistance or needs, call light with in reached. Will cont. POC & monitor.
[2023-05-30] MEDS: IBUPROFEN 400 MG TABLET PO (23:38)
[2023-05-31] MEDS: ACETAMINOPHEN 325 MG TABLET 650 MG PO ×2 (01:58→09:21)
[2023-05-31 02:00] VITALS: BP 114/64; PULSE 70; RESP 19; TEMP 36.3; O2SAT 98
[2023-05-31] MEDS: CEFAZOLIN 2 GM/100 ML PREMIX 100 ML IV (06:36)
[2023-05-31 07:12] LABS: Hematocrit 35.5 % (41-53); Mean Corpuscular HGB Conc 33.7 % (30-36); Mean Corpuscular Hemoglobin 29.1 PG (26-34); Mean Corpuscular Volume 86.3 fL (80-100); Platelet Count 209 X10^3/uL (150-400); Red Blood Cell Count 4.11 X10^6/uL (4.5-5.9); Red Cell Distribution Width 13.6 % (11.6-14.8); White Blood Cell Count 10.8 X10^3/uL (4.5-11.0)
[2023-05-31] MEDS: SODIUM CHLORIDE 0.9% FLUSH 10 ML IV (07:14)
[2023-05-31 07:24] LABS: BUN Creatinine Ratio 15.7 (6-22); Blood Urea Nitrogen 13 mg/dL (9-20); Calcium 8.4 mg/dL (8.4-10.2); Carbon Dioxide 28 mmol/L (22-32); Chloride 101 mmol/L (98-107); Estimated Glomerular Filt Rate > 60 mL/min (>60); Glucose 123 mg/dL (80-110); HEMOLYSIS < 15 (0-50); Sodium 134 mmol/L (137-145)
[2023-05-31 07:59] VITALS: BP 119/82; PULSE 74; RESP 17; TEMP 36.7; O2SAT 97
[2023-05-31] MEDS: IBUPROFEN 400 MG TABLET PO ×2 (09:21→11:33)
[2023-05-31] MEDS: ASPIRIN EC 81 MG TABLET PO (09:21)
[2023-05-31] MEDS: DOCUSATE 100 MG CAPSULE PO (09:21)
--- NOTE | 2023-05-31 10:40 | PT.IIE ---
Current Diagnoses Mixed hyperlipidemia (05/29/23) Essential (primary) hypertension (05/29/23) Fracture of unspecified part of neck of left femur, initial encounter for closed fracture (05/29/23) Surgery Performed Operation Date: 05/30/23 16:45 Actual Procedures p Total Hip Arthroplasty(Left) - Patito Duran MD Physical Therapy Inpatient Evaluation/Re-Eval M1 PT/OT-IP Prior Functional Status Start: 05/31/23 13:04 Freq: NEEDED Status: Active Protocol: Document 05/31/23 10:40 AB (Rec: 05/31/23 13:25 AB [id number]) Medical Review Prior Functional Status Medical History Reviewed Yes Communication able to make needs known Mobility and Gait pt stated that he was independent with all mobilities and ambulation without AD Social History Household Members spouse,family,children Living Arrangements House Number of Floors (Floors) One Floor Number of Stairs To Enter/Railing? 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 PT-IP Current Condition Start: 05/31/23 13:04 Freq: NEEDED Status: Active Protocol: Document 05/31/23 10:40 AB (Rec: 05/31/23 13:25 AB [id number]) Physical Therapy Current Condition Current Condition Evaluation Date 05/31/23 Treatment Diagnosis L femoral neck fx s/p L SAUMYA posterior approach; difficulty in walking Onset Date 05/29/23 M3 PT-IP Subjective Start: 05/31/23 13:04 Freq: NEEDED Status: Active Protocol: Document 05/31/23 10:40 AB (Rec: 05/31/23 13:25 AB [email or web address]) Subjective Physical Therapy Visit Type Type Initial Evaluation Visit Start Time 10:40 Visit Stop Time 11:50 Total Visit Minutes 70 Number of MARINE ANIMAL TRAINER Visits 0 Physical Therapy Visit Comments Patient Comments agreeable to do PT Therapy Pain Assessment Pain When Pain Assessed During Mobility Pain Present Pain Present Pain Reported Location LEFT hip Intensity 2 Scale Used Numeric (0 - 10) Pain Management Techniques Distraction,Modification of Treatment,Re-positioning, Timing of Activity with Medications M4 PT-IP Mobility and Gait Start: 05/31/23 13:04 Freq: NEEDED Status: Active Protocol: Document 05/31/23 10:40 AB (Rec: 05/31/23 13:25 AB [id number]) PT-Bed Mobility Assessment Supine to Sit Supine to Sit Standby Assistance Sit to Supine Sit to Supine Standby Assistance PT-Transfer Assessment Sit to and From Stand Sit to and from Stand Contact Guard Assistance, Minimal Assistance,Moderate Assistance,1 Person Assistance ,Use of Upper Extremities Equipment Transfer Assistive Device Gait Belt,Front Wheeled Walker Orthotic/Prosthetic Devices or Brace: No Transfers Transfer Destination Chair Transfer Technique ambulated Transfer Ability Level of Assist Contact Guard Assistance, Minimal Assistance,Moderate Assistance,1 Person Assistance ,Use of Upper Extremities Comments Mobility Comments pt supine in bed and agreeable to do PT. BP stable throughout PT session. spouse in room with pt. post-op folder provided and reviewed contents. educated pt and spouse regarding pt's posterior hip precautions. pt completed supine to sit x 2 attempts SBA and cued for techniques. pt with increase L hip guarding with posterior trunk leaning with initial sitting. cued to correct. pt completed sit to stand CGA to min A and max cues for techniques. presents with unsteady initial standing requiring CGA to min A for steadiness using FWW for support. pt ambulated in room using FWW ~ 12 ft CGA. pt sat on the chair min to mod A for sitting and pt presenting with uncontrolled descent requiring mod A. educated pt on techniques. completed sit to stand again CGA to min A and max cues. caregiver training conducted. educated spouse on how to use safety belt and how to assist pt . spouse was able to put safety belt on and assist pt with sit to stand. spouse assisted pt with ambulation using FWW towards EOB CGA. pt completed sit<>supine SBA and cues for techniques. educated spouse on how to assist pt with bed mobility if needed. spouse assisted pt with ambulation in the hallway ~ 50 ft using FWW. Stair climbing training. educated pt and spouse on how to do stairs. PT initially assisted pt: up/down platform step using SPC + HEAD STOCK OPERATOR min A and cues. spouse counter demonstrated and was able to assist pt with stairs x 6 reps . pt ambulated back to his room using FWW CGA and stated that he wants to go to the toilet. clarified that he just wants to see if he will be able to get up from the toilet. completed sit<>stand from the toilet CGA to min A and spouse assisted. educated again on techniques as pt tends to plop back during sitting. educated pt and spouse regarding DME needs: SPC, FWW, RTS with handles and tub transfer bench. pt ambulated to the chair using fWW CGA with spouse assisting. positioned pt on the chair. call light and table placed within reach. Gait Assessment Gait Gait Assistance Required: Contact Guard Assist Distance (Feet) 50 Able to Maintain Weight Bearing Status Yes During Gait Assistive Devices Assistive Device Gait Belt,Front Wheeled Walker Orthotic/Prosthetic Devices or Brace: No Gait Deviations General Gait Pattern Antalgic,Decreased Stride Length,Decreased Feet Clearance Factors Limiting Gait Function Factors Limiting Gait Function Decreased Activity Tolerance, Decreased Strength,Limited Range of Motion,Pain,Poor Balance,Poor Safety Awareness Stair Climbing Assessment Evaluation Level of Assist On Stairs Minimal Assistance Devices Stair Climbing Assistive Devices Straight Cane Technique/Endurance Stair Climbing Direction Ascend and Descend Stair Climbing Technique Step to Step Number of Steps Climbed 1 Query Text: Stair Climbing Set # Repetitions (reps) 7 PT-Balance Assessment Sitting Balance and Reactions Static Sitting Balance Ability Normal Dynamic Sitting Balance Ability Good Standing Balance and Reactions Static Standing Balance Ability Fair Dynamic Standing Balance Ability Fair Device Used FWW M5 PT-IP Objective Assessments Start: 05/31/23 13:04 Freq: NEEDED Status: Active Protocol: Document 05/31/23 10:40 AB (Rec: 05/31/23 13:25 AB [id number]) Orientation Orientation/Cognition Level of Alertness Alert Orientation Name,Place,Situation Language Function Ability No Deficits Noted Safety Awareness Decreased Safety Awareness Memory Description No Deficits Noted Gross Range of Motion Lower Extremity ROM Assessment Within Functional Limits Strength Lower Extremity Strength Assessment Left Impaired Hip 3-/5 Knee 4-/5 Coordination Assessment Gross Coordination Gross Coordination WNL Sensation Assessment Sensation Gross Sensation WNL Muscle Tone Muscle Tone WNL Yes M6 PT-IP Treatment Start: 05/31/23 13:04 Freq: NEEDED Status: Active Protocol: Document 05/31/23 10:40 AB (Rec: 05/31/23 13:25 AB [id number]) Physical Therapy Treatment Education Education Provided Precautions,Weight Bearing Status,Post-Op Packet,Safety M7 PT-IP Assessment and Plan Start: 05/31/23 13:04 Freq: NEEDED Status: Active Protocol: Document 05/31/23 10:40 AB (Rec: 05/31/23 13:25 AB [id number]) PT Summary Assessment and Plan Potential Rehabilitation Potential Good Status of Condition at Evaluation Stable Summary Impairments Pain,ROM,Strength,Balance, Coordination,Sensation,Tone, Cognition,Bed Mobility, Transfers,Gait,Activity Tolerance Assessment Summary pt is a 58 y/o M who had a fall and sustain a L femoral neck fx. pt underwent L SAUMYA posterior approach. pt currently has posterior hip precautions and is WBAT on LLE . pt requiring SBA for bed mobility, CGA to min A for sit to stand, CGA for ambulation using FWW and min A for stair climbing. caregiver training conducted and spouse was able to assist pt safely. pt may go home with spouse to assist. pt will need outpt PT. Goals Bed Mobility Goal Independent Transfer Goal Independent,Front Wheeled Walker Gait Goal Independent,Front Wheel Walker Gait Distance 250 Other Goals up/down 12 steps uisng SPC + HEAD STOCK OPERATOR CGA Days to Meet Goals 5 Frequency of Treatment Frequency Of Treatment Twice a Day Treatment Plan Physical Therapy Treatment Plan Bed Mobility Training,Transfer Training,Gait Training, Therapeutic Exercise,Balance Retraining,Post Op Education, Discharge Planning,Hot or Cold Pack,Neuromuscular Re-ed, Coordination Retraining,Manual Therapy Precautions Posterior Hip Precautions No Hip Flexion > 90 degrees,No Hip Internal Rotation,No Hip Adduction Weight Bearing Status Weight Bearing Status Weight Bear as Tolerated Allowed Weight Bearing Amount (enter % LLE WBAT or #) (%) Recommendations To Nursing Amount of Assist Needed 1 Person Assist Discharge Recommendations PT Discharge Recommendations Home with Assistance, Outpatient PT Equipment Needed for Home Before FWW, SPC, tub transfer bench, Discharge RTS with handles Transportation Needs at Discharge Private Vehicle
--- NOTE | 2023-05-31 11:28 | CM.DPC ---
DCP Cont. Reviewed EMR and team rounds for status updates. Pt is post-op day 1. PT/OT evals and recommendations are pending for any OP therapy needs. Cont. to monitor. No further DCP needs identified for today.
--- NOTE | 2023-05-31 12:52 | OT.IP.EVAL ---
Current Diagnoses Mixed hyperlipidemia (05/29/23) Essential (primary) hypertension (05/29/23) Fracture of unspecified part of neck of left femur, initial encounter for closed fracture (05/29/23) Surgery Performed Operation Date: 05/30/23 16:45 Actual Procedures p Total Hip Arthroplasty(Left) - Patito Duran MD Occupational Therapy Inpatient Evaluation/Re-Eval M1 PT/OT-IP Prior Functional Status Start: 05/31/23 13:21 Freq: NEEDED Status: Active Protocol: Document 05/31/23 12:52 [facility] (Rec: 05/31/23 13:37 [facility] [id number]) Medical Review Prior Functional Status Communication Independent, but Setswana is not his primary language. 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 Social History Household Members spouse Living Arrangements House Number of Stairs To Enter/Railing? Pt states has 15 steps with 2 steps and then platform alternating to get into his house. Home Environment Standard Height Toilet,Tub/ Shower M2 OT-IP Current Condition Start: 05/31/23 13:21 Freq: Status: Active Protocol: Document 05/31/23 12:52 [facility] (Rec: 05/31/23 13:37 [facility] [id number]) Occupational Therapy Current Condition Current Condition Evaluation Date 05/31/23 Treatment Diagnosis S/P L SAUMYA posterior approach Diagnosis Onset Date 05/29/23 Post Operative Precautions Posterior Hip Precautions No Hip Flexion > 90 degrees,No Hip Internal Rotation,No Hip Adduction M3 OT- IP Subjective and Pain Start: 05/31/23 13:21 Freq: Status: Active Protocol: Document 05/31/23 12:52 [facility] (Rec: 05/31/23 13:37 [facility] [id number]) OT- Subjective Occupational Therapy Visit Type Type Initial Evaluation Visit Start Time 12:52 Visit Stop Time 13:15 Total Visit Minutes 23 Occupational Therapy Visit Comments Patient Comments Pt wanting to get dressing and states to shower at home. Patient/Caregiver Goals To go home. OT Pain Assessment Pain When Pain Assessed At Rest Pain Present Pain Present Denied Pain M4 OT- IP ADL's Start: 05/31/23 13:21 Freq: Status: Active Protocol: Document 05/31/23 12:52 [facility] (Rec: 05/31/23 13:37 [facility] [id number]) OT RKS-Beyi-[id number] General Evaluation Self-Feeding Ability Independent OT ADL-Grooming Comments OT Grooming Comments Not performed. OT ADL-Oral Care Comments Oral Care Comments Not performed. OT ADL-Dressing General Eval Upper Body Dressing Ability Independent Lower Body Dressing Ability Standby Assistance,Maximum Assistance Areas Needing Assistance Underpants/Brief,Pants/Shorts, Socks Comments OT Dressing Comments Able to practice use of residential service technician and sock aid for LB dressing needs. Pt states will get some. OT ADL-Toileting Comments OT Toileting Comments Pt not having to go. Went over techniques to be able to wipe and follow his hip precautions. Pt's looking to get a BSC versus RTS with handles. OT ADL-Bathing Comments OT Bathing Comments Educated probably safer to get a tub bench for now. M5 OT- IP IADL's Start: 05/31/23 13:21 Freq: Status: Active Protocol: Document 05/31/23 12:52 [facility] (Rec: 05/31/23 13:37 [facility] [id number]) OT-Instrumental Activities of Daily Living Deficits IADL Deficits Identified Deficits Home Safety Awareness Awareness of Need for Assistance at Home Good Awareness Ability to Problem Solve Emergency Able to Problem Solve Situations Home Safety Comments Pt is a bit impulsive and easily distracted and needing cues to slow down. Pt has a supportive to be able to assist to assist pt for all his needs. Meal Preparation Meal Preparation Caregiver Provides Assist Research Associate Professor Research Associate Professor Caregiver Provides Assist M6 OT- IP Functional Cognition Start: 05/31/23 13:21 Freq: Status: Active Protocol: Document 05/31/23 12:52 [facility] (Rec: 05/31/23 13:37 [facility] [id number]) Cognitive Factors Limiting Selfcare Function Cognitive Ability Level of Alertness Alert Patient Orientation Name,Age,Birthday,Month,Date, Year,Day of Week,Place, Situation Attention Span Ability Capable of Focused Attention, Capable of Sustained Attention Ability to Follow Commands Able to Follow One Step Commands Safety Awareness Decreased Ability to Apply Precautions,Underestimates Need for Assistance Cognitive Comments Cognitive Assessment Comments Pt needing reminders to apply his hip precautions during ADl needs. Emphasized to pt to stop and think before he gets up and moves. Pt's has good understanding for all ADl and mobility needs for the pt . OT- Vision and Hearing OT- Hearing Assessment OT- Hearing Assessment WFL OT- Vision Assessment Visual Acuity Glasses For Reading M7 OT- IP Mobility and Balance Start: 05/31/23 13:21 Freq: Status: Active Protocol: Document 05/31/23 12:52 [facility] (Rec: 05/31/23 13:37 [facility] [id number]) OT-Transfer Assessment Sit to and From Stand Sit to and from Stand Standby Assistance Technique Transfer Destination Chair Transfer Technique Stand Step Pivot Devices Transfer Assistive Devices Front Wheeled Walker Comments Mobility Comments SBA with FWW and mainly vc to slow down. OT- Balance Assessment Sitting Balance and Reactions Static Sitting Balance Ability Normal Dynamic Sitting Balance Ability Normal Standing Balance and Reactions Static Standing Balance Ability Good Dynamic Standing Balance Ability Good Comments Other Balance Tests/Deviations/Treatment with FWW : M8 OT- IP Objective Assessments Start: 05/31/23 13:21 Freq: Status: Active Protocol: Document 05/31/23 12:52 [facility] (Rec: 05/31/23 13:37 [facility] [id number]) OT Gross Range of Motion Upper Extremity Range of Motion Assessment Within Functional Limits OT Strength Upper Extremity Strength Assessment Within Functional Limits M9 OT- IP Assessment and Plan Start: 05/31/23 13:21 Freq: Status: Active Protocol: Document 05/31/23 12:52 [facility] (Rec: 05/31/23 13:37 [facility] [id number]) OT Summary Assessment and Plan Potential Rehabilitation Potential Good Analytic Complexity at Evaluation Low Summary OT Impairments Pain,Balance,Functional Mobility,Dressing,Toileting, Bathing,Toilet Transfers, Shower Transfers Progress Towards Goals Progressing Toward Goals Assessment Summary Pt low complexity and main barriers are pain, will need use of LB dressing equipment or assist , and benefit from tub bench/RTS with handles or BSC so best able to follow his hip precautions. Pt is a bit impulsive and easily distracted and needing cues to slow down. Pt's has good understanding to be able to assist for all ADl and mobility needs. Pt to go home when medically stable and have outpt PT. Goals Dressing Goal Independent,Foreclosure Specialist,Sock Aid Toileting Goal Independent Bathing Goal Independent Toilet Transfer Goal Independent Shower Transfer Goal Independent Days to Meet Goals 5 Frequency of Treatment Frequency Of Treatment Once a Day Treatment Plan OT Treatment Plan ADL Training,Functional Mobility,Patient/Family Education,Discharge Planning Discharge Recommendations OT Discharge Recommendations Home with Assistance, Outpatient PT Home Equipment Needs BSC/RTS with handles, tub bench, LB dresing equipment Transportation Needs at Discharge Private Vehicle
--- NOTE | 2023-05-31 13:27 | PC.NURSE ---
Pt is dressed and ready for discharge home with Spouse. IV has been removed. Ice packs have been filled for Pt to use during his ferry ride home to [facility]. Pt denies pain. Went over d/c instructions with Pt and Spouse. Discussed d/c meds, time of last dose, reviewed stroke education, s/s of infection, hip precautions, no driving until cleared by MD and until taking no narcotics, encouraged fluid intake to prevent constipation or dehydration and follow up appointment. Pt and Spouse denied further questions and Pt will be taken out via w/c by EMAIL MARKETING MANAGER to POV with Spouse and all belongings.
--- NOTE | 2023-05-31 19:47 | P.DS_ITS ---
History of Present Illness History of Present Illness Chief complaint: fell off ladder/lt thigh hip injury Narrative: Per admitting physician: 58 years old male without any past medical history presents to the ER after a fall off a ladder from about 5 feet's. Landed on his buttocks and left hip. Immediately after that he started having left hip pain and later on shoulder pain. Denies any loss of consciousness or head injury. Denies any other symptoms. In the ER CT scan shows comminuted left femoral neck fracture. Orthopedic surgery was contacted and will see the patient in the morning. Laboratory unremarkable except sodium 135 and blood sugar 116. He was given morphine 2 mg IV in the ED. Discharge Providers Provider Date of admission: 05/29/23 21:04 Discharge Date: 05/31/23 Primary care physician: Thaddeus Falcon MD Consults: 05/29/23 21:25 Consult to Occupational Therapy Evaluate & Treat Comment: Physician Instructions: Evaluate and treat Consult to Physical Therapy Evaluate & Treat Comment: Physician Instructions: Evaluate and Treat 05/30/23 07:54 Consult to Orthopedic Surgery Routine Comment: Consulting Provider: Patito Duran Reason for consultation: Left hip fracture 05/30/23 13:57 Consult to Anesthesiology Routine Comment: Consulting Provider: Anesthesiologist Reason for consultation: Regional block for post operative pain control 05/30/23 19:37 Consult to Discharge Planning Routine Comment: Consult to Occupational Therapy Evaluate & Treat Comment: Physician Instructions: Evaluate and treat Consult to Physical Therapy Evaluate & Treat Comment: Physician Instructions: post op SAUMYA protocol Discharge provider: Bladimir Comer MD Exam Vital Signs (past 8 hours): Oxygen Delivery Method Room Air Oxygen Flow Rate 0 Narrative Exam Narrative: GEN: no acute distress CV: regular rate and rhythm PULM: clear bilaterally ABD: soft, nontender, nondistended EXT: left hip tender to palpation Objective Labs 05/31/23 06:38 05/31/23 06:38 Labs: Laboratory Results - last 24 hr 05/31/23 06:38 WBC 10.8 RBC 4.11 L Hgb 12.0 L Hct 35.5 L MCV 86.3 MCH 29.1 MCHC 33.7 RDW 13.6 Plt Count 209 Sodium 134 L Potassium 4.0 Chloride 101 Carbon Dioxide 28 BUN 13 Creatinine 0.83 Estimated GFR > 60 BUN/Creatinine Ratio 15.7 Glucose 123 H Calcium 8.4 PFSH Social History household members: spouse Smoking Status: Never smoker Discharge Assessment & Plan Assessment and Plan Assessment: 1. Acute left hip fracture 2. Hypertension 3. Hyperlipidemia Plan of Treatment: Mr. Gurrola was admitted after a fall. He had a hip fracture on the left which was repaired. He did well after surgery. He was discharged with aspirin for dvt prophylaxis. He should follow up with ortho surgery within two weeks. Discharge Plan Discharge Plan Patient Disposition: Home Health Service Discharge orders & Medications Prescriptions: New aspirin 81 mg Tablet,Delayed Release (Dr/Ec) 81 mg PO BID Qty: 60 0RF docusate sodium 100 mg Capsule 100 mg PO BID Qty: 20 0RF ibuprofen 400 mg Tablet 400 mg PO Q4H PRN (Reason: pain) Qty: 20 0RF oxycodone 5 mg Tablet 5 mg PO Q6HR PRN (Reason: Pain, Moderate (4-6)) Qty: 10 0RF Medication counseling provided by Pharmacist: Yes Follow up/Referrals: Patito Duran MD [Physician] - 06/13/23 2:00 pm (Appt:06/13 check in at 1:30 for a 2:00 appointment with Kimmie wharton @ [facility] @ [address] [place] [address] for a follow up lt hip fracture) Thaddeus Falcon MD [Primary Care Provider] - 06/14/23 10:00 am (appt: 06/14 @ 10:[address] Odessa falcon @ [facility] [phone] for for hospitalized for hip fracture) Diet/Activity/Treatments Diet: Regular Visit Report/Discharge Packet Instructions: DI for Hip Replacement, DI for Prescription Opioid Use, Oxycodone Stand Alone Forms: Patient Portal/API, Stroke Signs & Symptoms Discharge Data Primary Care Provider: Thaddeus Falcon Quality VTE Deep Vein Thrombosis/Pulmonary Embolism Present on Admission: No
== END 2023-05-31 13:53 | disposition home or self-care (01) | DRG 522 ==
LOC: ED 19:11 → AC 21:05
PROVIDERS: Internal Medicine; Orthopaedic Surgery; Admitting Provider Internal Medicine; Emergency Provider Emergency Medicine; PCP Family Medicine; Referring Provider Emergency Medicine; Visit Provider Internal Medicine
PROC: 0SRB0JZ Replacement of Left Hip Joint with Synthetic Substitute, Open Approach (ICD-10-PCS; CPT 27130; principal; 2023-05-30 16:45)
DX: S72.002A Fracture of unspecified part of neck of left femur, initial encounter for closed fracture (principal); E78.2 Mixed hyperlipidemia; I10 Essential (primary) hypertension; W11.XXXA Fall on and from ladder, initial encounter
CPT/HCPCS: 36415; 71046; 71260; 72170; 73502; 74177; 80048; 80053; 85025; 85027; 96374; 97161; 97165; 97530; 97535; 99284; 99285; C1776; C9290; J0131; J0171; J0330; J0690; J1100; J1170; J2270; J2405; J2704; J3010; Q9967